=== PATIENT | female | born 1980 ===

== ENCOUNTER 2017-01-05 08:10 | Outpatient (CLI) | payer OTHER ==
--- NOTE | 2017-01-05 14:26 | Ultrasound Report ---
TRANSABDOMINAL AND TRANSVAGINAL PELVIC ULTRASOUND: 01/05/17 08:10:00 CLINICAL: Anemia and heavy menses. Fibroids. FINDINGS: Transabdominal and transvaginal pelvic ultrasound demonstrated an enlarged fibroid uterus measuring 13.1 x 6.7 x 9.6 cm. The largest fibroid is located intramural in the posterior fundus and measures 5.8 x 5.2 x 6.3 cm. The next largest fibroid is located anterior subserosal in the uterine body and measures 4.0 x 3.6 x 3.2 cm. An intramural posterior body fibroid measures 2.9 x 2.6 x 1.4 cm.The endometrium is normal and measures 6.0 mm AP thickness. Normal ovaries. The right ovary measures 3.5 x 1.2 x 3.0cm. The left ovary measures 4.2 x 1.5 x 3.2cm. No adnexal mass. No free fluid. Normal urinary bladder. IMPRESSION: 1. Uterine leiomyomata with a dominant 5.8 cm fundal fibroid. 2. Normal endometrium. 3. Normal ovaries.
== END 2017-01-05 08:11 | disposition home or self-care (01) ==
LOC: SPVWC 08:10
PROVIDERS: ATTEND Family Medicine
DX: D25.9 Leiomyoma of uterus, unspecified (principal); D64.9 Anemia, unspecified; N92.0 Excessive and frequent menstruation with regular cycle
CPT/HCPCS: 76830; 76856